=== PATIENT | male | born 1995 | race Caucasian/White ===

== ENCOUNTER → 2017-07-14 | Outpatient (CLI) | payer BC ==
--- NOTE | 2017-07-14 14:30 | RADIOLOGY IMAGING REPORT ---
FACILITY: [facility] - [place] PATIENT NAME: Ken Garza : 1995 MR: [id number] V: [id number] EXAM DATE: ORDERING PHYSICIAN: EWELINA CASAS TECHNOLOGIST: Location: [facility] [place] Patient: Ken Garza : 1995 Visit/Account:[id number] Date of Sevice: 07/14/2017 TESTICULAR HISTORY: Left testicular pain two days ago, no recent infection COMPARISON: None. FINDINGS: Testes: The right testicle measures 4.3 x 2.9 x 3.6 in meters. The left testicle measures 5 x 2.4 x 3.5 cm. There is no demonstration of testicular masses. Vascular flow was identified to both testic les. Symmetric and unremarkable blood flow documented by color and Duplex Doppler ultrasound. Epididymides: Head epididymis on the right measures 0.8 cm on the left 1.3 cm. There are two cysts i n the head of the epididymis on the left largest measuring 6 mm. Blood flow is unremarkable in each epididymis by color Doppler ultrasound. Hydrocele: Small bilaterally Varicocele: None demonstrated IMPRESSION: Two cysts in the head of the epididymis on the left, the largest measuring 6 mm. Small bilateral hydroceles Report Dictated By: Corie Carbone MD at 07/14/2017 2:24 PM Report E-Signed By: Corie Carbone MD at 07/14/2017 2:26 PM WSN:[id number]
== END ==
LOC: US 12:49
PROVIDERS: ATTEND Emergency Medicine Sports Medicine
DX: N50.3 Cyst of epididymis (principal)
CPT/HCPCS: 76870